=== PATIENT | female | born 1980 | race Two or more races ===

== ENCOUNTER 2024-07-17 08:42 | Outpatient (AMB) | payer MEDICAID, SELFPAY ==
--- NOTE | 2024-07-17 09:35 | ACNOTE_ITS ---
Allergies/Meds Allergies & Medications Allergies Penicillins Allergy (Unknown, Verified 07/17/24 09:35) as childhood,swelling ,rash Medication Reconciliation buspirone 5 mg tablet 5 mg PO BID 1 month #60 tabs 10/24/23 [Rx Confirmed 07/17/24] duloxetine 30 mg capsule,delayed release 30 mg PO QDAY 1 month #30 caps 10/24/23 [Rx Confirmed 07/17/24] azithromycin 500 mg tablet 500 mg PO QDAY 5 days #5 tabs 07/17/24 [Rx] vgmlkiewtpnll-BS-cwrylsnbxfqmt-guaif 10 mg-20 mg-650 mg/20 mL oral liq (Mucinex Fast-Max Zzsp-Cbd-Hpmfha) 20 ml PO Q4H PRN cough #118 mL 07/17/24 [Rx] MA Intake Visit Data Collection New Patient or Established: Established Patient (seen at [facility] within 3 years) Seen by Clinical Staff ONLY (RN/MA): No Pain Present Currently: No Pain scale:: 0 Pain Scale Used: Harris-Mcallister/Numerical Gravel Inspector Required: No PCP or OBGYN visit in last 3 months: No Hx Now: No Do You Feel Safe at Home: Yes Authorities Contacted: N/A Smoking Status Smoking Status: Current every day smoker Cessation Counseling Provided: DANIA was advised that quitting smoking is the single most important factor to protect the health of themselves and their family. Discussed the benefits of quitting smoking with patient. Encouraged patient to quit smoking and provided Cessation assistance materials and resources. Tobacco Use: Cigarette (Tobacco smoking was not discussed during this visit) Years smoked: 0 Are you interested in quitting?: Yes Would you like additional Smoking Cessation Counseling?: No For Televisit only Telemed Video/Phone Visit: Yes Verbal consent obtained for Telemed visit?: Yes Verbal Consent witness name: CARMEN Telemed Video/Phone visit w/Clinical Staff: 21-30 min Immunization / Flu Flu Vaccine in the Last 12 Months: No Flu Vaccine Exclusion Criteria: No Exclusion Criteria Past Medical History Past Medical History NEUROLOGIC: Positive Neurological Disorders and Migraine; Negative Seizures CARDIAC: Negative Cardiac Disorders or Congestive Heart Failure RESPIRATORY: Positive Bronchitis; Negative Chronic Obstructive Pulmonary Disease (COPD) or Asthma GASTROINTESTINAL: Positive Gastrointestinal Disorders and Gall Bladder Disease GENITOURINARY: Positive Genitourinary Disorders; Negative Renal Disease REPRODUCTIVE: Positive Previous Pregnancies MUSCULOSKELETAL: Positive Rheumatoid Arthritis ENT: Positive Deafness ENDOCRINE: Negative Endocrine Disorders, Diabetes Mellitus Type 1 or Diabetes Mellitus Type 2 HEMATOLOGIC: Negative Blood Disorders or Sickle Cell Disease PSYCHO/SOCIAL: Positive Depression and Anxiety OTHER HISTORY: Negative Hospitalization, Shingles, Falls, Blood Transfusions, Blood Transfusion Reaction or Anesthesia Reactions Family History FAMILY HISTORY: Positive Family Cardiac Disorders, Family Cancer and Family Surgery; Negative Family Anesthesia Reaction Surgical History SURGICAL: Positive Abdominal Surgery and Tubal Ligation Social History SMOKING STATUS: Smoking status: Current every day smoker ALCOHOL: Alcohol Intake: Current ALCOHOL FREQUENCY: Alcohol Intake Frequency: holidays/special occasions only HOUSING: Housing: House LIVES WITH: Lives With: Spouse Patient Portal Questionaires PHQ-9 PHQ-2 Over the last 2 weeks, how often have you been bothered by any of the following problems? 1. Little interest or pleasure in doing things: not at all Social History Living Situation History Housing: House Tobacco History Smoking Status: Current every day smoker Alcohol History Alcohol Intake: Current Alcohol Intake Frequency: holidays/special occasions only Domestic Abuse History Do You Feel Safe at Home: Yes Review of Systems Report any current symptoms Only answer those that you have currently: Past Medical History Past Medical History Have you ever been diagnosed with any of the following: Neurological Problems Seizures: No Migraine: Yes Cardiology Problems Congestive Heart Failure: No Respiratory Problems Chronic Obstructive Pulmonary Disease (COPD): No Asthma: No Bronchitis: Yes Stomache/Intestinal Problems Gall Bladder Disease: Yes Genital/Urinary Problems Renal Disease: No Reproductive Problems Previous Pregnancies: Yes Musculoskeletal Problems Rheumatoid Arthritis: Yes Head,Eye,Nose,Throat Problems Deafness: Yes Endocrine Problems Diabetes Mellitus Type 1: No Diabetes Mellitus Type 2: No Blood Problems Sickle Cell Disease: No Psychologic Problems Depression: Yes Anxiety: Yes Other Problems Hospitalization: No Shingles: No Falls: No Blood Transfusions: No Blood Transfusion Reaction: No Anesthesia Reactions: No History of Present Illness HPI Narrative Patient is a 43 year old female with a medical history of major depressive disorder, generalized anxiety disorder, substance abuse, gastritis, and C8 Radiculopathy who presents to [facility] for a follow-up appointment. Patient had a televisit with chief complaint of sore throat, congestion, cough with mucus production, feeling of swelling in her throat, change in taste of food, some experience of shortness of breath and mild pain with deep inspiration. 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 She says that she has febrile like episodes but has not recorded her temperature nor has she measured her oxygenation with a pulse oximeter. She states that she tries to cough up the mucus but sometimes ends up swallowing it but notes that it is yellow in color. Patient states that she would like to take oral antibiotics and if she does not feel better in 2 to 3 days then she will follow back for further lab testing for influenza, RSV, and strep throat. She also informs me that she has an allergy to penicillin but has previously been prescribed cephalosporins without complications and macrolides. She denies any other associated symptoms. She also requests a note to her school district in regards to her illness. Review of Systems Review of Systems Systems Reviewed: All systems reviewed, normal except as documented Objective/Exam Narrative Physical exam: Unable to assess due to visit conducted over telephone Assessment & Plan Diagnosis / Problem List (1) Streptococcal pharyngitis: Status: Acute Assessment & Plan: Febrile like illness for past 2 to 3 days Sore throat with congestion and mucus production that is yellow in color Feeling of difficulty swallowing Feeling of mucus getting stuck in her throat Exposure to sick children due to her occupation Previous history of allergy to penicillin Plan: Azithromycin 500 mg p.o. daily for 5 days Mucinex DM 20 mL every 4 hourly for cough as needed Recommend laboratory testing for rapid strep and influenza in 2 to 3 days if patient does not have marked improvement in her symptoms following antibiotic therapy Additional Assessment Internal Medicine Attending Note: Case discussed with and agree with note and management plan of Resident Physician as per Resident's Note above. Issues of concern for present visit are as follows: Follow-up telehealth visit with acute complaint of URI symptoms including sore throat, congestion, cough with mucus production, taste alteration, mild dyspnea, mild pain with deep inspiration. Has had sick contacts that she works at a school, possible exposure to strep. Unsure if any fever. We will empirically treat with antibiotic. If does not improve, would consider further lab testing for viral causes. Work slip also to be sent. Reinaldo Cota MD Physician Billing Established Patient Established Patient: E/M Level 2-CPT 74735 Office Procedures [facility] Level of Care Nursing/Assessment Patient Status: Established Patient Nursing Assessment/Reassessment: Medication Reconciliation and Update PMH in EMR Coordination of Care: Complex Care and Chronic Disease 1-5, Consent,records obtained, informed consent, Education Simp Pt/Fam and Staff clarify orders Established Patient Charge Established Patient Point Assignment: 70 Telehealth Telemed Phone/Video with patient at home & Dr,PA,TUBE COVERER: Yes
== END 2024-07-17 09:55 | disposition home or self-care (01) ==
PROVIDERS: Supervising Provider Internal Medicine
DX: J02.0 Streptococcal pharyngitis (principal)
CPT/HCPCS: 99212; G0463

== ENCOUNTER 2024-09-25 14:10 | Outpatient (AMB) | payer MEDICAID, SELFPAY ==
--- NOTE | 2024-09-25 14:16 | PD.RESCLINIC ---
Allergies/Meds Allergies & Medications Allergies Penicillins Allergy (Unknown, Verified 09/25/24 14:19) as childhood,swelling ,rash Medication Reconciliation buspirone 5 mg tablet 5 mg PO BID 1 month #60 tabs 10/24/23 [Rx Confirmed 09/25/24] duloxetine 30 mg capsule,delayed release 30 mg PO QDAY 1 month #30 caps 10/24/23 [Rx Confirmed 09/25/24] tcnjniyjemxcy-PO-djdqlnlqichbn-guaif 10 mg-20 mg-650 mg/20 mL oral liq (Mucinex Fast-Max Ilcj-Qau-Aayhhe) 20 ml PO Q4H PRN cough #118 mL 07/17/24 [Rx Confirmed 09/25/24] ondansetron 8 mg disintegrating tablet 8 mg PO Q8H PRN nausea and vomiting #12 tabs 09/25/24 [Rx] DIVYA Intake Visit Data Collection New Patient or Established: Established Patient (seen at [facility] within 3 years) Seen by Clinical Staff ONLY (RN/MA): No Pain Present Currently: No Pain scale:: 0 Pain Scale Used: Harris-Mcallister/Numerical Arch Cushion Skiving Machine Operator Required: No PCP or OBGYN visit in last 3 months: No (N/A) Hx Now: No Do You Feel Safe at Home: Yes Authorities Contacted: N/A Smoking Status Smoking Status: Current every day smoker Cessation Counseling Provided: DANIA was advised that quitting smoking is the single most important factor to protect the health of themselves and their family. Discussed the benefits of quitting smoking with patient. Encouraged patient to quit smoking and provided Cessation assistance materials and resources. Tobacco Use: Cigarette (N/A) Years smoked: 0 Are you interested in quitting?: No For Televisit only Telemed Video/Phone Visit: Yes Verbal consent obtained for Telemed visit?: Yes Verbal Consent witness name: lizzie noyola ma Telemed Video/Phone visit w/Clinical Staff: 21-30 min Immunization / Flu Flu Vaccine in the Last 12 Months: No Flu Vaccine Exclusion Criteria: Refused by Patient Past Medical History Past Medical History NEUROLOGIC: Positive Neurological Disorders and Migraine; Negative Seizures CARDIAC: Negative Cardiac Disorders or Congestive Heart Failure RESPIRATORY: Positive Bronchitis; Negative Chronic Obstructive Pulmonary Disease (COPD) or Asthma GASTROINTESTINAL: Positive Gastrointestinal Disorders and Gall Bladder Disease GENITOURINARY: Positive Genitourinary Disorders; Negative Renal Disease REPRODUCTIVE: Positive Previous Pregnancies MUSCULOSKELETAL: Positive Rheumatoid Arthritis ENT: Positive Deafness ENDOCRINE: Negative Endocrine Disorders, Diabetes Mellitus Type 1 or Diabetes Mellitus Type 2 HEMATOLOGIC: Negative Blood Disorders or Sickle Cell Disease PSYCHO/SOCIAL: Positive Depression and Anxiety OTHER HISTORY: Negative Hospitalization, Shingles, Falls, Blood Transfusions, Blood Transfusion Reaction or Anesthesia Reactions Family History FAMILY HISTORY: Positive Family Cardiac Disorders, Family Cancer and Family Surgery; Negative Family Anesthesia Reaction Surgical History SURGICAL: Positive Abdominal Surgery and Tubal Ligation Social History SMOKING STATUS: Smoking status: Current every day smoker ALCOHOL: Alcohol Intake: Current ALCOHOL FREQUENCY: Alcohol Intake Frequency: holidays/special occasions only HOUSING: Housing: House LIVES WITH: Lives With: Spouse Patient Portal Questionaires PHQ-9 PHQ-2 Over the last 2 weeks, how often have you been bothered by any of the following problems? 1. Little interest or pleasure in doing things: not at all Social History Living Situation History Housing: House Tobacco History Smoking Status: Current every day smoker Alcohol History Alcohol Intake: Current Alcohol Intake Frequency: holidays/special occasions only Domestic Abuse History Do You Feel Safe at Home: Yes Review of Systems Report any current symptoms Only answer those that you have currently: Past Medical History Past Medical History Have you ever been diagnosed with any of the following: Neurological Problems Seizures: No Migraine: Yes Cardiology Problems Congestive Heart Failure: No Respiratory Problems Chronic Obstructive Pulmonary Disease (COPD): No Asthma: No Bronchitis: Yes Stomache/Intestinal Problems Gall Bladder Disease: Yes Genital/Urinary Problems Renal Disease: No Reproductive Problems Previous Pregnancies: Yes Musculoskeletal Problems Rheumatoid Arthritis: Yes Head,Eye,Nose,Throat Problems Deafness: Yes Endocrine Problems Diabetes Mellitus Type 1: No Diabetes Mellitus Type 2: No Blood Problems Sickle Cell Disease: No Psychologic Problems Depression: Yes Anxiety: Yes Other Problems Hospitalization: No Shingles: No Falls: No Blood Transfusions: No Blood Transfusion Reaction: No Anesthesia Reactions: No History of Present Illness HPI Narrative Patient is a 43 year old female with a medical history of major depressive disorder, generalized anxiety disorder, substance abuse, gastritis, and C8 Radiculopathy who presents to [facility] through tele-visit for flue like symptoms that started x4 days ago. Patient also endorsing headache, nausea, stomach pain, decreased appetite and diarrhea. Patient denied having fever, chest pain/pressure, change in vision, neck pain or other associated symptoms. 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 Explained that symptoms are most likely viral in nature. Advised to increase water intake, will send zofran for symptoms of nausea. Advised if symptoms worsen to go to nearest hospital / ED. Patient care was reviewed with my attending Dr. Cipriano Avalos, PGY-2 Review of Systems Review of Systems Systems Reviewed: All systems reviewed, normal except as documented Objective/Exam Narrative Physical exam: Appointment was through telephone, patient appeared alert and oriented, able to answer questions appropriately. Assessment & Plan Diagnosis / Problem List (1) URI (upper respiratory infection): Status: Acute Qualifiers: URI type: unspecified viral URI Qualified Code(s): J06.9 - Acute upper respiratory infection, unspecified Assessment & Plan: Symptoms started x4 days ago Family members with similar symptoms of nausea, diarrhea and headache Plan: -Encouraged increased water and electrolyte intake -Zofran for nausea Additional Assessment Internal Medicine Attending Note: Case discussed with and agree with note and management plan of Resident Physician as per Resident's Note above. Issues of concern for present visit are as follows: Visit completed via telehealth. Patient reporting URI / flulike symptoms. Symptoms present for 4 days. Also noting some nausea, decreased appetite, diarrhea. Other family members with similar symptoms. Suspect this is viral. Symptomatic care, increase hydration, antiemetic prescribed for patient, may also use antidiarrheal such as loperamide. If symptoms worsen, patient instructed to proceed to emergency room. Reinaldo Cota MD Physician Billing Established Patient Established Patient: E/M Level 2-CPT 88718 Office Procedures [facility] Level of Care Nursing/Assessment Patient Status: Established Patient Nursing Assessment/Reassessment: Medication Reconciliation and Update PMH in EMR Coordination of Care: Complex Care and Chronic Disease 1-5, Consent,records obtained, informed consent, Education Simp Pt/Fam and Staff clarify orders Established Patient Charge Established Patient Point Assignment: 70 Telehealth Telemed Phone/Video with patient at home & ,PA,FAMILY MEDICINE CHAIR: Yes
== END 2024-09-25 15:27 | disposition home or self-care (01) ==
LOC: HODAHC 14:10
PROVIDERS: Supervising Provider Internal Medicine; Visit Provider Internal Medicine
DX: J06.9 Acute upper respiratory infection, unspecified (principal)
CPT/HCPCS: 99212; G0463

== ENCOUNTER 2024-10-14 14:36 | Outpatient (AMB) | payer MEDICAID, SELFPAY ==
--- NOTE | 2024-10-14 15:31 | PD.RESCLINIC ---
Allergies/Meds Allergies & Medications Allergies Penicillins Allergy (Unknown, Verified 10/14/24 15:31) as childhood,swelling ,rash Medication Reconciliation buspirone 5 mg tablet 5 mg PO BID 1 month #60 tabs 10/24/23 [Rx Confirmed 10/16/24] duloxetine 30 mg capsule,delayed release 30 mg PO QDAY 1 month #30 caps 10/24/23 [Rx Confirmed 10/16/24] shoavplkvwcdq-MA-cdeirmdiigqvk-guaif 10 mg-20 mg-650 mg/20 mL oral liq (Mucinex Fast-Max Wpvq-Nzx-Aaraml) 20 ml PO Q4H PRN cough #118 mL 07/17/24 [Rx Confirmed 10/16/24] ondansetron 8 mg disintegrating tablet 8 mg PO Q8H PRN nausea and vomiting #12 tabs 09/25/24 [Rx Confirmed 10/16/24] DIVYA Intake Visit Data Collection New Patient or Established: Established Patient (seen at [facility] within 3 years) Seen by Clinical Staff ONLY (RN/MA): No Pain Present Currently: No Pain scale:: 0 Pain Scale Used: Harris-Mcallister/Numerical Spring Former Machine Required: No PCP or OBGYN visit in last 3 months: No Hx Now: No Do You Feel Safe at Home: Yes Authorities Contacted: N/A Smoking Status Smoking Status: Current every day smoker Cessation Counseling Provided: DANIA was advised that quitting smoking is the single most important factor to protect the health of themselves and their family. Discussed the benefits of quitting smoking with patient. Encouraged patient to quit smoking and provided Cessation assistance materials and resources. Tobacco Use: Cigarette Years smoked: 1 Are you interested in quitting?: No For Televisit only Telemed Video/Phone Visit: Yes Verbal consent obtained for Telemed visit?: Yes Verbal Consent witness name: lizzie noyola ma Telemed Video/Phone visit w/Clinical Staff: 21-30 min Immunization / Flu Flu Vaccine in the Last 12 Months: No Flu Vaccine Exclusion Criteria: Refused by Patient Past Medical History Past Medical History NEUROLOGIC: Positive Neurological Disorders and Migraine; Negative Seizures CARDIAC: Negative Cardiac Disorders or Congestive Heart Failure RESPIRATORY: Positive Bronchitis; Negative Chronic Obstructive Pulmonary Disease (COPD) or Asthma GASTROINTESTINAL: Positive Gastrointestinal Disorders and Gall Bladder Disease GENITOURINARY: Positive Genitourinary Disorders; Negative Renal Disease REPRODUCTIVE: Positive Previous Pregnancies MUSCULOSKELETAL: Positive Rheumatoid Arthritis ENT: Positive Deafness ENDOCRINE: Negative Endocrine Disorders, Diabetes Mellitus Type 1 or Diabetes Mellitus Type 2 HEMATOLOGIC: Negative Blood Disorders or Sickle Cell Disease PSYCHO/SOCIAL: Positive Depression and Anxiety OTHER HISTORY: Negative Hospitalization, Shingles, Falls, Blood Transfusions, Blood Transfusion Reaction or Anesthesia Reactions Family History FAMILY HISTORY: Positive Family Cardiac Disorders, Family Cancer and Family Surgery; Negative Family Anesthesia Reaction Surgical History SURGICAL: Positive Abdominal Surgery and Tubal Ligation Social History SMOKING STATUS: Smoking status: Current every day smoker ALCOHOL: Alcohol Intake: Current ALCOHOL FREQUENCY: Alcohol Intake Frequency: holidays/special occasions only HOUSING: Housing: House LIVES WITH: Lives With: Spouse Patient Portal Questionaires PHQ-9 PHQ-2 Over the last 2 weeks, how often have you been bothered by any of the following problems? 1. Little interest or pleasure in doing things: not at all Social History Living Situation History Housing: House Tobacco History Smoking Status: Current every day smoker Alcohol History Alcohol Intake: Current Alcohol Intake Frequency: holidays/special occasions only Domestic Abuse History Do You Feel Safe at Home: Yes Review of Systems Report any current symptoms Only answer those that you have currently: Past Medical History Past Medical History Have you ever been diagnosed with any of the following: Neurological Problems Seizures: No Migraine: Yes Cardiology Problems Congestive Heart Failure: No Respiratory Problems Chronic Obstructive Pulmonary Disease (COPD): No Asthma: No Bronchitis: Yes Stomache/Intestinal Problems Gall Bladder Disease: Yes Genital/Urinary Problems Renal Disease: No Reproductive Problems Previous Pregnancies: Yes Musculoskeletal Problems Rheumatoid Arthritis: Yes Head,Eye,Nose,Throat Problems Deafness: Yes Endocrine Problems Diabetes Mellitus Type 1: No Diabetes Mellitus Type 2: No Blood Problems Sickle Cell Disease: No Psychologic Problems Depression: Yes Anxiety: Yes Other Problems Hospitalization: No Shingles: No Falls: No Blood Transfusions: No Blood Transfusion Reaction: No Anesthesia Reactions: No History of Present Illness HPI Narrative Patient is a 43 year old female with a medical history of major depressive disorder, generalized anxiety disorder, substance abuse, gastritis, and C8 Radiculopathy who presents to [facility] through tele-visit for symptoms of flu. Patient states that she has been having a runny nose, dry cough, and abdominal pain in addition to fevers and chills x 1 day. Patient feels like she is having a flu. Denies any sick contacts. Patient did try supportive measures last month, however states these symptoms are much more different. Suspect viral influenza vs bacterial PNA and will prescribe patient Tamiflu 75mg BID and have her test for COVID-19 via home test. If negative, patient encouraged to call [facility] for next steps for treatment. Patient also requested a work note, and provided patient form via Fax to her work. Review of Systems Review of Systems Systems Reviewed: All systems reviewed, normal except as documented Objective/Exam Narrative Physical exam: visit conducted via telephone Assessment & Plan Diagnosis / Problem List (1) Viral respiratory illness: Status: Acute Assessment & Plan: Patient states that she has been having a runny nose, dry cough, and abdominal pain in addition to fevers and chills x 1 day. Patient feels like she is having a flu. Denies any sick contacts. Patient did try supportive measures last month, however states these symptoms are much more different. Suspect viral influenza vs bacterial PNA Plan: -Tamiflu 75mg BID -Encouraged patient to test for COVID-19 via home test and call if positive results Additional Assessment Patient's care and plan discussed with my attending, Dr. Cota. Oly Zapata, PGY-2 Office Procedures [facility] Level of Care Nursing/Assessment Patient Status: Established Patient Nursing Assessment/Reassessment: Medication Reconciliation and Update PMH in EMR Coordination of Care: Complex Care and Chronic Disease 1-5, Consent,records obtained, informed consent, Education Simp Pt/Fam and Staff clarify orders Established Patient Charge Established Patient Point Assignment: 70 Telehealth Telemed Phone/Video with patient at home & Dr,PA,TELEPHONE SWITCHBOARD OPERATOR: Yes
== END 2024-10-14 15:53 | disposition home or self-care (01) ==
LOC: HODAHC 14:36
PROVIDERS: Supervising Provider Internal Medicine; Visit Provider Student in an Organized Health Care Education/Training Program
DX: B34.9 Viral infection, unspecified (principal)
CPT/HCPCS: 99212; G0463